=== PATIENT | male | born 1965 | race Caucasian/White ===

== ENCOUNTER 2017-10-29 12:17 | Emergency (ER) | payer OTHER ==
[~2017-10-29] VITALS: Ht 170.2 cm; Wt 104.5 kg
[2017-10-29] MEDS ORDERED: MOTRIN600 MG PO (16:15)
[2017-10-29] MEDS ORDERED: SKELAXIN800 MG PO (16:15)
[2017-10-29 16:30] VITALS: BP 133/82
== END 2017-10-29 16:32 | disposition home or self-care (01) ==
LOC: EME 12:17
DX: S16.1XXA Strain of muscle, fascia and tendon at neck level, initial encounter (principal); S80.812A Abrasion, left lower leg, initial encounter; S60.512A Abrasion of left hand, initial encounter; V53.5XXA Driver of pick-up truck or van injured in collision with car, pick-up truck or van in traffic accident, initial encounter; Y92.410 Unspecified street and highway as the place of occurrence of the external cause; I10 Essential (primary) hypertension; E78.5 Hyperlipidemia, unspecified; Z88.2 Allergy status to sulfonamides
CPT/HCPCS: 72125; 73590; 99281; 99284